=== PATIENT | male | born 1950 ===

== ENCOUNTER 2018-07-09 08:32 | Emergency (ER) | payer MEDICARE, OTHER ==
[2018-07-09 08:35] VITALS: BMI 22.5
[2018-07-09] MEDS ORDERED: Albuterol 0.083% Inhal Sol (2.5 mg/3 mL) UD INH ONE (09:32)
[2018-07-09] MEDS ORDERED: Albuterol-Ipratrop 3 mg / 0.5 (3 ml) UD ONE (09:36)
--- NOTE | 2018-07-09 09:36 | CARD ---
APPROVED REPORT Date of service: 07/09/2018 EKG Measurement Heart [id number] <Conclusion> Normal sinus rhythm Normal ECG
--- NOTE | 2018-07-09 09:41 | ED PDOC ---
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 Patient has history of lung cancer for which he had surgery a year and 4 months ago and states he's had back pain since but worsen recently. Patient is no longer receiving treatment for CA. Patient reports he was recently diagnosed with pneumonia and believes he may have it again. Patient reports chills, cough and nausea but denies diarrhea or vomiting. He is visiting from [place] were he will return once he is well enough. PMD: In [place], none provided Past Medical History Reviewed: Historical Data, Nursing Documentation, Vital Signs Vital Signs: Last Vital Signs Temp 98.4 F 07/09/18 13:08 Pulse 81 07/09/18 13:08 Resp 15 07/09/18 13:08 BP 118/75 07/09/18 13:08 Pulse Ox 100 07/09/18 15:38 - Medical History PMH: Diabetes, HIV, HTN - Surgical History Surgical History: Hernia Repair (x2) - Family History Family History: States: Unknown Family Hx - Social History Current smoker - smoking cessation education provided: No Alcohol: None Drugs: Denies - Allergies Allergies/Adverse Reactions: Allergies Allergy/AdvReac Type Severity Reaction Status Date / Time No Known Allergies Allergy Verified 07/09/18 08:59 ZARINA Risk Score for UA/NSTEMI - ZARINA Risk Score Age > 64: YES 3 or more CAD Risk Factors: NO Known CAD (Stenosis greater than 50%): NO Aspirin use in past 7 days: NO Severe Angina: NO EKG ST changes greater than 0.5mm: NO Positive Cardiac Marker: NO ZARINA Score: 1 Risk %: 5% Wells Criteria for PE - Wells Criteria for Pulmonary Embolism Clinical Signs and Symptoms of DVT: No P.E is #1 Diagnosis, or Equally Likely: No Heart Rate >100: No Immobilization at least 3 days;Surgery previous 4 weeks: No Previous, objectively diagnosed PE or DVT: No Hemoptysis: No Total Score: 0 Review of Systems ROS Statement: Except As Marked, All Systems Reviewed And Found Negative Constitutional: Positive for: Chills. Negative for: Fever Cardiovascular: Negative for: Chest Pain, Palpitations Respiratory: Positive for: Cough, Shortness of Breath Gastrointestinal: Positive for: Nausea. Negative for: Vomiting, Diarrhea Musculoskeletal: Positive for: Back Pain Physical Exam - Reviewed Nursing Documentation Reviewed: Yes Vital Signs Reviewed: Yes - Physical Exam Appears: Positive for: Non-toxic, No Acute Distress Head Exam: Positive for: ATRAUMATIC, NORMAL INSPECTION, NORMOCEPHALIC Skin: Positive for: Normal Color, Warm, Dry Eye Exam: Positive for: Normal appearance, EOMI, PERRL ENT: Positive for: Normal ENT Inspection Neck: Positive for: Normal, Painless ROM Cardiovascular/Chest: Positive for: Regular Rate, Rhythm Respiratory: Positive for: Normal Breath Sounds. Negative for: Respiratory Distress Gastrointestinal/Abdominal: Positive for: Normal Exam, Soft. Negative for: Tenderness Back: Positive for: Normal Inspection Extremity: Positive for: Normal ROM (upper and lower). Negative for: Deformity , Swelling Neurologic/Psych: Positive for: Alert, Oriented - Laboratory Results Result Diagrams: 07/09/18 09:55 07/09/18 09:55 - ECG O2 Sat by Pulse Oximetry: 100 (RA) Pulse Ox Interpretation: Normal Medical Decision Making Medical Decision Making: Time: 09:17 Initial Impression: back pain, mild cough pt denies chest pain Initial Plan: --CMP --EKG-ED --CBC w/ differential --Chest xray w/ 2 views --Albuterol 2.5 mg INH --Blood culture --Peak flow pre/post tx 09:59 CXR FINDINGS: LUNGS: No acute infiltrate identified bilaterally. Volume loss right lung is appreciated with limited hyperexpansion of left lung. PLEURA: No significant pleural effusion identified. No pneumothorax apparent. CARDIOVASCULAR: Normal. OSSEOUS STRUCTURES: No significant abnormalities. VISUALIZED UPPER ABDOMEN: Elevated right hemidiaphragm. OTHER FINDINGS: None. IMPRESSION: Right hemidiaphragm elevation appears limited and there is mild volume loss of the right lung without obvious infiltrate or atelectasis identified. No airspace disease bilaterally. No cardiomegaly or pulmonary vascular congestion. 11:24 pt resting in no distress, airway intact, breathing comfortably -EKG: NSR @ [address] changes. -CXR and labs normal, waiting on Troponin 12:40 -Troponin and D Dimer negative. pt sleeping in bed in no distress. discussed need for pt to follow up in clinic, Patient is medically stable and requires no further treatment in the ED at this time. Patient advised to follow up with clinic in x2 days. Diagnosis of muscular pain. initially ordered motrin but pt stated he was comfortable at this point. Scribe Attestation: Documented by Charlotte Rincon, acting as a scribe for Dr. Anisha Das MD. Provider Scribe Attestation: All medical record entries made by the Scribe were at my direction and personally dictated by me. I have reviewed the chart and agree that the record accurately reflects my personal performance of the history, physical exam, medical decision making, and the department course for this patient. I have also personally directed, reviewed, and agree with the discharge instructions and disposition. Disposition - Clinical Impression Clinical Impression: Musculoskeletal back pain - Patient ED Disposition Is Patient to be Admitted: No Counseled Patient/Family Regarding: Studies Performed, Diagnosis, Need For Followup - Disposition Referrals: [facility] [Outside] [facility] [Outside] Disposition: Routine/Home Disposition Time: 12:35 Condition: IMPROVED Additional Instructions: follow up in the clinic in 1-2 days take motrin for pain as needed return to the ED with any worsening or concerning symptoms Instructions: Upper Back Pain (DC) Forms: [employer] ([place]) Print Language: ENGLISH
[2018-07-09] MEDS ORDERED: Albuterol 0.083% Inhal Sol (2.5 mg/3 mL) UD ONE (09:45)
--- NOTE | 2018-07-09 10:10 | RAD ---
Date of service: 07/09/2018 HISTORY: hiv, cough COMPARISON: No prior. TECHNIQUE: Chest PA and lateral FINDINGS: LUNGS: No acute infiltrate identified bilaterally. Volume loss right lung is appreciated with limited hyperexpansion of left lung. PLEURA: No significant pleural effusion identified. No pneumothorax apparent. CARDIOVASCULAR: Normal. OSSEOUS STRUCTURES: No significant abnormalities. VISUALIZED UPPER ABDOMEN: Elevated right hemidiaphragm. OTHER FINDINGS: None. IMPRESSION: Right hemidiaphragm elevation appears limited and there is mild volume loss of the right lung without obvious infiltrate or atelectasis identified. No airspace disease bilaterally. No cardiomegaly or pulmonary vascular congestion.
[2018-07-09 10:18] LABS: ALB/GLOB RATIO 1.4 (1.0-2.1); ALBUMIN 3.7 g/dL (3.5-5.0); ALT/SGPT 21 U/L (21-72); AST/SGOT 17 U/L (17-59); BLOOD UREA NITROGEN 19 mg/dl (9-20); CALCIUM 8.7 mg/dL (8.4-10.2); GFR AFRICAN-AMERICAN > 60; GFR NON-AFRICAN AMERICAN > 60
[2018-07-09 10:21] LABS: BASO % 0.2 % (0.0-2.0); EOS # 0.2 K/uL (0.0-0.7); EOS % 2.5 % (0.0-4.0); HEMOGLOBIN 12.6 g/dL (12.0-18.0); LYMPH # 0.9 K/uL (1.0-4.3); LYMPH % 13.7 % (20.0-40.0); MEAN CELL VOLUME 86.7 fl (80.0-94.0); MEAN CORPUSCULAR HGB CONC 33.5 g/dL (33.0-37.0); MEAN PLATELET VOLUME 9.2 fl (7.2-11.7); MONO % 15.8 % (0.0-10.0); NEUT # 4.3 K/uL (1.8-7.0); NEUT % 67.8 % (50.0-75.0); NRBC % 0.3 % (0.0-0.0); RBC 4.35 Mil/uL (4.40-5.90); RED CELL DISTRIBUTION WIDTH 15.8 % (11.5-14.5); WHITE BLOOD COUNT 6.3 K/uL (4.8-10.8)
[2018-07-09 13:09] VITALS: BP 118/75; PULSE 81; RESP 15; TEMP 98.4
[2018-07-09 13:10] VITALS: O2SAT 100
== END 2018-07-09 13:09 | disposition home or self-care (01) ==
LOC: H.ER 08:32
DX: M79.1 Myalgia (principal); R06.02 Shortness of breath; E11.9 Type 2 diabetes mellitus without complications; I10 Essential (primary) hypertension; B20 Human immunodeficiency virus [HIV] disease